=== PATIENT | male | born 1955 | race Caucasian/White ===

== ENCOUNTER 2023-12-10 01:54 | Emergency (ER) | payer BC ==
[2023-12-10 02:38] LABS: Absolute Basophils 0.1 K/uL (0-0.5); Absolute Eosinophils 0.1 K/uL (0-0.5); Absolute Lymphocytes (CBC) 3.9 K/uL (0.7-4.9); Absolute Monocytes 0.6 K/uL (0.1-1.3); Absolute Neutrophil 4.4 K/uL (1.8-8.0); Basophils % 0.7 % (0-1.3); Eosinophils % 1.5 % (0-4.4); Hematocrit 46.4 % (39.6-49.0); Hemoglobin 15.8 g/dL (13.6-17.9); Lymphocytes % 42.4 % (15.3-44.8); MCH 29.1 pg (27.0-35.0); MCV 85.6 fL (80-100); MPV 9.8 fL (7.6-11.3); Monocytes % 6.9 % (3.3-12.3); Neutrophils % 48.5 % (41.7-73.7); Nucleated Red Blood Cells % 0.5 % (0-0); Platelets 210 thou/uL (152-406); RBC Red Blood Cell Count 5.42 M/uL (4.33-5.43)
[2023-12-10 02:57] LABS: ALT/SGPT 57 U/L (16-61); Albumin 3.8 g/dL (3.4-5.0); Albumin/Globulin Ratio 1.2 (1.1-1.8); Alkaline Phosphatase 69 U/L (45-117); Anion Gap 8.8 mEq/L (5.0-15.0); BUN Blood Urea Nitrogen 20 mg/dL (7-18); Bicarbonate 26 mEq/L (21-32); Bilirubin Total 0.4 mg/dL (0.2-1.0); Globulin 3.1 g/dL (2.3-3.5); Glomerular Filtration Rate 94 ml/min (=/>90); Glucose Level 182 mg/dL (74-106); Protein, Total 6.9 g/dL (6.4-8.2); Sodium Level 136 mEq/L (136-145); Troponin High Sensitivity 6.9 pg/mL (<58.9)
[2023-12-10 03:01] LABS: AST/SGOT 22 U/L (15-37); Bilirubin Direct < 0.2 mg/dL (0-0.2); Bilirubin Indirect, Calculated 0.2 mg/dL (0.2-0.8); Potassium 3.8 mEq/L (3.5-5.1)
--- NOTE | 2023-12-10 05:17 | EDPHYS ---
Physician Documentation [facility] Name: Dayron Garduno Jr Age: 68 yrs Sex: Male : 1955 Arrival Date: 12/10/2023 Time: 01:54 Bed 16 Private MD: Porfirio Anguiano ED Physician Mahesh Carvajal HPI: 12/09 02:42 This 68 yrs old Male presents to ER via Ambulatory with complaints of Chest Pain. rt 02:42 Patient with previous history of cardiac disease, coronary artery disease with 2 stents rt presents to the ED with a chest pain described as a tightness, intermittent for the past 2 days. States that worsened tonight. States that is mostly resolved, reports mild chest discomfort at this time. Denies other acute complaints at this time, symptoms are moderate in severity, no other aggravating or alleviating factors.. Historical: - Allergies: 02:09 No Known Allergies; al5 - PMHx: 02:09 Hypertensive disorder; Diabetes mellitus; high cholesterol; al5 - PSHx: 02:09 parathyroidectomy; stents; al5 - Immunization history:: Adult Immunizations up to date. - Infectious Disease History:: Denies. - Social history:: Smoking status: Patient denies any tobacco usage or history of. ROS: 02:42 Constitutional: Negative for fever, chills, and weight loss, Respiratory: Negative for rt shortness of breath, cough, wheezing, and pleuritic chest pain, Abdomen/GI: Negative for abdominal pain, nausea, vomiting, diarrhea, and constipation, Skin: Negative for injury, rash, and discoloration, Neuro: Negative for headache, weakness, numbness, tingling, and seizure, Psych: Negative for depression, anxiety, suicide ideation, homicidal ideation, and hallucinations, 02:42 Cardiovascular: Positive for chest pain, Negative for edema, Exam: 02:42 Constitutional: This is a well developed, well nourished patient who is awake, alert, rt and in no acute distress. Head/Face: Normocephalic, atraumatic. Chest/axilla: Normal chest wall appearance and motion. Nontender with no deformity. No lesions are appreciated. Cardiovascular: Regular rate and rhythm with a normal S1 and S2. No gallops, murmurs, or rubs. Normal PMI, no JVD. No pulse deficits. Respiratory: Lungs have equal breath sounds bilaterally, clear to auscultation and percussion. No rales, rhonchi or wheezes noted. No increased work of breathing, no retractions or nasal flaring. Abdomen/GI: Soft, non-tender, with normal bowel sounds. No distension or tympany. No guarding or rebound. No evidence of tenderness throughout. Skin: Warm, dry with normal turgor. Normal color with no rashes, no lesions, and no evidence of cellulitis. MS/ Extremity: Pulses equal, no cyanosis. Neurovascular intact. Full, normal range of motion. Neuro: Awake and alert, GCS 15, oriented to person, place, time, and situation. Cranial nerves II-XII grossly intact. Motor strength 5/5 in all extremities. Sensory grossly intact. Cerebellar exam normal. Normal gait. 02:42 ECG was reviewed by the Attending Physician. 04:43 ECG was reviewed by the Attending Physician. rt Vital Signs: 02:07 BP 165 / 94; Pulse 61; Resp 18; Temp 97.9; Pulse Ox 95% on R/A; Weight 83.91 kg; Height al5 5 ft. 9 in. ; Pain 6/10; 02:30 BP 154 / 88; Pulse 52; Resp 16; Pulse Ox 100% on R/A; al5 04:30 BP 151 / 85; Pulse 55; Resp 16; Pulse Ox 100% on R/A; al5 05:00 BP 151 / 88; Pulse 56; Resp 16; Pulse Ox 100% on R/A; al5 05:30 BP 142 / 82; Pulse 54; Resp 16; Pulse Ox 100% on R/A; al5 02:07 Body Mass Index 27.32 (83.91 kg, 175.26 cm) al5 02:07 Pain Scale: Adult al5 MDM: 02:04 Patient medically screened. rt 05:16 Differential diagnosis: coronary artery disease congestive heart failure pneumonia, rt pneumothorax. HEART Score: History: Moderately Suspicious (1), ECG: Normal (0), Age: > or = 65 years (2), Risk Factors: > or = 3 Risk factors for atherosclerotic disease (2), Troponin: < or = 1 x Normal Limit (0), Total Score = 5. The patient was not given aspirin in the Emergency Department. Patient reports taking aspirin within the past 24 hours. Data reviewed: vital signs, nurses notes, lab test result(s), EKG, radiologic studies. Consideration of Admission/Observation Escalation of care including admission/observation considered. Given risk factors, I discussed admission with the patient, stating that is the safest option for him. Patient has had similar chest pains associate with coronary disease in the past. Patient states that he strongly does not wish to stay in the hospital. Repeat troponin and EKG were obtained that showed no dynamic changes. Patient still wishes to go home. He will follow-up with his futures trader as an outpatient. Patient will return to the ED should he develop any worsening symptoms or new concerning symptoms.. Independent interpretation of the following test(s) in the Emergency Department X-Ray: My interpretation is No pneumonia seen on my interpretation of x-ray images. Care significantly affected by the following chronic conditions: Diabetes, Hypertension. Counseling: I had a detailed discussion with the patient and/or guardian regarding the historical points, exam findings, and any diagnostic results supporting the discharge/admit diagnosis, lab results, radiology results, the need for outpatient follow up, to return to the emergency department if symptoms worsen or persist or if there are any questions or concerns that arise at home. Response to treatment: the patient's symptoms have resolved after treatment, the patient's pain is gone. 12/09 02:18 Order name: Basic Metabolic Panel; Complete Time: 03:02 rt 12/09 02:18 Order name: CBC with Diff; Complete Time: 03:02 rt 12/09 02:18 Order name: LFT's; Complete Time: 03:02 rt 12/09 02:18 Order name: Magnesium; Complete Time: 03:02 rt 12/09 02:18 Order name: Troponin HS; Complete Time: 03:02 rt 12/09 04:01 Order name: Troponin High Sensitivity; Complete Time: 05:14 rt 12/09 02:18 Order name: XRAY Chest (1 view) rt 12/09 02:18 Order name: EKG; Complete Time: 02:18 rt 12/09 04:01 Order name: EKG; Complete Time: 04:01 rt 12/09 02:18 Order name: Cardiac monitoring; Complete Time: 02:22 rt 12/09 02:18 Order name: EKG - Nurse/Tech; Complete Time: 02:20 rt 08/20 02:18 Order name: IV Saline Lock; Complete Time: 02: rt 12/09 02:18 Order name: Labs collected and sent; Complete Time: rt 12/09 02:18 Order name: O2 Per Protocol; Complete Time: rt 12/09 02:18 Order name: O2 Sat Monitoring; Complete Time: rt 12/09 04:01 Order name: EKG - Nurse/Tech; Complete Time: 04:13 rt EC:42 Rate is 52 beats/min. Rhythm is regular, Normal Sinus Rhythm with No ectopy. QRS [place] rt is Normal. IN interval is normal. QRS interval is normal. QT interval is normal. No Q waves. T waves are Normal. No ST changes noted. 04:43 Rate is 53 beats/min. Rhythm is regular, Sinus bradycardia with No ectopy. QRS [place] is rt Normal. IN interval is normal. QRS interval is normal. QT interval is normal. No Q waves. T waves are Normal. No ST changes noted. Interpreted by me. Administered Medications: No medications were administered Disposition Summary: 12/10/23 05:15 Discharge Ordered Notes: Location: Home rt Problem: new rt Symptoms: have improved rt Condition: Stable rt Diagnosis - Chest pain, unspecified rt Followup: rt - With: Private Physician - When: 2 - 3 days - Reason: Discharge Instructions: - Discharge Summary Sheet rt - Nonspecific Chest Pain, Adult rt Forms: - Medication Reconciliation Form rt - Antibiotic Education rt - Prescription Opioid Use rt - Patient Portal Instructions rt - Leadership Thank You Letter rt Signatures: Dispatcher [employer] Mahesh Abreu MD MD rt Kelly Raza RN RN al5
--- NOTE | 2023-12-10 05:17 | ER ---
Nurse's Notes [facility] Name: Dayron Garduno Jr Age: 68 yrs Sex: Male : 1955 Arrival Date: 12/10/2023 Time: 01:54 Bed 16 Private MD: Porfirio Anguiano Diagnosis: Chest pain, unspecified Presentation: 12/09 02:07 Chief complaint: Patient states: c/o L side CP starting 2 days ago, was intermittent al5 but has become more continuous. denies shortness of breath. Coronavirus screen: At this time, the client does not indicate any symptoms associated with coronavirus-19. Ebola Screen: No symptoms or risks identified at this time. Initial Sepsis Screen: Does the patient meet any 2 criteria? No. Patient's initial sepsis screen is negative. Does the patient have a suspected source of infection? No. Patient's initial sepsis screen is negative. Risk Assessment: Do you want to hurt yourself or someone else? Patient reports no desire to harm self or others. Onset of symptoms was December 08, 2023. 02:07 Method Of Arrival: Ambulatory al5 02:07 Acuity: [place]ILL[place] 2 al5 Triage Assessment: 02:11 General: Appears in no apparent distress. Behavior is calm, cooperative. Pain: al5 Complains of pain in anterior aspect of left upper chest and left breast. EENT: No signs and/or symptoms were reported regarding the EENT system. Neuro: Level of Consciousness is awake, alert, obeys commands, Oriented to person, place, time, situation. Cardiovascular: Capillary refill < 3 seconds Patient's skin is warm and dry. Rhythm is regular Chest pain. Respiratory: Airway is patent Respiratory effort is even, unlabored, Respiratory pattern is regular, symmetrical. GI: No signs and/or symptoms were reported involving the gastrointestinal system. GI: Abdomen is round non-distended. : No signs and/or symptoms were reported regarding the genitourinary system. Derm: Skin is intact, Skin is pink, warm \T\ dry. normal. Musculoskeletal: No signs and/or symptoms reported regarding the musculoskeletal system. Historical: - Allergies: 02:09 No Known Allergies; al5 - PMHx: 02:09 Hypertensive disorder; Diabetes mellitus; high cholesterol; al5 - PSHx: 02:09 parathyroidectomy; stents; al5 - Immunization history:: Adult Immunizations up to date. - Infectious Disease History:: Denies. - Social history:: Smoking status: Patient denies any tobacco usage or history of. Screenin:13 [facility] ED Fall Risk Assessment (Adult) History of falling in the last 3 months, al5 including since admission No falls in past 3 months (0 pts) Confusion or Disorientation No (0 pts) Intoxicated or Sedated No (0 pts) Impaired Gait No (0 pts) Mobility Assist Device Used No (0 pt) Altered Elimination No (0 pt) Score/Fall Risk Level 0 - 2 = Low Risk Oriented to surroundings, Maintained a safe environment, Hourly rounding (assess needs \T\ fall precautionary measures) done. Abuse screen: Denies threats or abuse. Denies injuries from another. Nutritional screening: No deficits noted. Tuberculosis screening: No symptoms or risk factors identified. Assessment: 02:13 Reassessment: see triage assessment. Pain: Complains of pain in chest and left breast al5 and anterior aspect of left upper chest Pain does not radiate. Pain began 2-3 days ago. 03:30 Reassessment: Patient appears in no apparent distress at this time. No changes from al5 previously documented assessment. Patient and/or family updated on plan of care and expected duration. Pain level reassessed. Patient is alert, oriented x 3, equal unlabored respirations, skin warm/dry/pink. 04:34 Reassessment: Patient appears in no apparent distress at this time. No changes from al5 previously documented assessment. Patient and/or family updated on plan of care and expected duration. Pain level reassessed. Patient is alert, oriented x 3, equal unlabored respirations, skin warm/dry/pink. Vital Signs: 02:07 BP 165 / 94; Pulse 61; Resp 18; Temp 97.9; Pulse Ox 95% on R/A; Weight 83.91 kg; Height al5 5 ft. 9 in. ; Pain 6/10; 02:30 BP 154 / 88; Pulse 52; Resp 16; Pulse Ox 100% on R/A; al5 04:30 BP 151 / 85; Pulse 55; Resp 16; Pulse Ox 100% on R/A; al5 05:00 BP 151 / 88; Pulse 56; Resp 16; Pulse Ox 100% on R/A; al5 05:30 BP 142 / 82; Pulse 54; Resp 16; Pulse Ox 100% on R/A; al5 02:07 Body Mass Index 27.32 (83.91 kg, 175.26 cm) al5 02:07 Pain Scale: Adult al5 ED Course: 01:58 Patient arrived in ED. gm2 01:59 Porfirio Anguiano MD is Private Physician. gm2 02:00 Kelly Raza, YOMI is Primary Nurse. al5 02:00 Mahesh Carvajal MD is Attending Physician. al5 02:09 Triage completed. al5 02:12 Arm band placed on right wrist. Patient placed in the treatment room, on a stretcher. al5 02:12 EKG done, by ED staff, reviewed by Mahesh Carvajal MD. oe 02:13 No provider procedures requiring assistance completed. O2 via room air. al5 02:14 Patient has correct armband on for positive identification. Bed in low position. Call al5 light in reach. Side rails up X2. Provided Education on: processes and procedures. Client placed on continuous cardiac and pulse oximetry monitoring. NIBP monitoring applied. manufacturing engineer assembly on. 02:22 Basic Metabolic Panel Sent. al5 02:22 Troponin HS Sent. al5 02:22 Magnesium Sent. al5 02:22 LFT's Sent. al5 02:22 CBC with Diff Sent. al5 02:23 Inserted saline lock: 20 gauge in left forearm, using aseptic technique. al5 02:52 XRAY Chest (1 view) In Process Unspecified. EDMS 05:30 IV discontinued, intact, bleeding controlled, No redness/swelling at site. Pressure al5 dressing applied. Administered Medications: No medications were administered Medication: 02:13 VIS not applicable for this client. al5 Outcome: 05:15 Discharge ordered by MD. rt 05:30 Discharged to home al5 05:30 Discharged to home ambulatory, with significant other, 05:30 Condition: good 05:30 Discharge instructions given to patient, Instructed on discharge instructions, follow up and referral plans. 05:30 Instructed on Demonstrated understanding of instructions, follow-up care, 05:32 Patient left the ED. al5 Signatures: Dispatcher [employer] EDRI Rakan Ivey oe Mahesh Carvajal MD MD rt Demi Jain 2 Kelly Raza RN RN al5 Corrections: (The following items were deleted from the chart) 05:31 05:00 BP 151 / 88; Pulse 56bpm; Resp 16bpm; Pulse Ox 100% RA; al5 al5 05:32 05:00 BP 142 / 82; Pulse 54bpm; Resp 16bpm; Pulse Ox 100% RA; al5 al5 05:32 05:30 BP 151 / 88; Pulse 56bpm; Resp 16bpm; Pulse Ox 100% RA; al5 al5
[2023-12-10 05:44] VITALS: TEMP 97.9
[2023-12-10 05:56] VITALS: O2SAT 100
[2023-12-10 05:59] VITALS: BP 142/82
--- NOTE | 2023-12-10 17:45 | EKG ---
Test Date: 2023-12-10 Test Time: 04:10:07 [employer] Specialist: MEENU MEASUREMENT RESULTS: Intervals: Rate: 53 PA: 178 QRSD: 110 QT: 430 QTc: 403 [place]: P: 46 PA: 178 QRS: 66 T: 58 INTERPRETIVE STATEMENTS: Sinus bradycardia Otherwise normal ECG Compared to ECG 12/10/2023 02:08:50 No significant changes Electronically Signed On 12-10-23 17:44:04 CDT by Triston Roberts
--- NOTE | 2023-12-10 17:45 | EKG ---
Test Date: 2023-12-10 Test Time: 02:08:50 Health And Safety Advisor: MEENU MEASUREMENT RESULTS: Intervals: Rate: 52 DE: 176 QRSD: 110 QT: 424 QTc: 394 [place]: P: 49 DE: 176 QRS: 64 T: 68 INTERPRETIVE STATEMENTS: Sinus bradycardia Otherwise normal ECG Compared to ECG 04/27/2003 12:23:00 ST (T wave) deviation no longer present Electronically Signed On 12-10-23 17:44:07 CDT by Triston Roberts
--- NOTE | 2023-12-10 19:46 | RAD REPORT ---
EXAM DESCRIPTION: XR Chest, 1 View CLINICAL HISTORY: Chest pain. TECHNIQUE: Frontal view of the chest. COMPARISON: No relevant prior studies available. FINDINGS: Lungs: Unremarkable. No consolidation. Pleural space: Unremarkable. No pneumothorax. Heart: Unremarkable. No cardiomegaly. Mediastinum: Unremarkable. Normal mediastinal contour. Bones/joints: Unremarkable. No acute fracture. IMPRESSION: No acute disease. Electronically signed by: Zakiya Lim MD 12/10/2023 03:23 AM CDT Due to temporary technical issues with the PACS/Fluency reporting system, reports are being signed by the in house radiologists without review as a courtesy to insure prompt reporting. The interpreting radiologist is fully responsible for the content of the report.
== END 2023-12-10 05:32 | disposition home or self-care (01) ==
LOC: ER 01:54
DX: R07.89 Other chest pain (principal); I10 Essential (primary) hypertension
CPT/HCPCS: 36415; 71045; 80048; 80076; 83735; 84484; 85025; 93005